=== PATIENT | female | born 2000 | race Caucasian/White ===

== ENCOUNTER 2024-10-26 00:04 | Inpatient (IN) | payer BC ==
[2024-10-26] MEDS ORDERED: Sodium Chloride 0.9% 20 ML SDV IV PRN (00:14)
[2024-10-26] MEDS ORDERED: Misoprostol 200 MCG Tab PO PRN (00:14)
[2024-10-26] MEDS ORDERED: Ondansetron 4 MG/2 ML SDV IVPUSH PRN (00:14)
[2024-10-26] MEDS ORDERED: Sodium Chloride 0.9% 10 ML Syringe FLUSH PRN (00:14)
[2024-10-26] MEDS ORDERED: Sodium Chloride 0.9% 2.5 ML Syringe FLUSH PRN (00:14)
[2024-10-26] MEDS ORDERED: Carboprost Tromethamine 250 MCG/1 mL Vial IM PRN (00:14)
[2024-10-26] MEDS ORDERED: Methylergonovine 0.2 MG/1 ML Amp IM PRN (00:14)
[2024-10-26] MEDS ORDERED: Lidocaine 1% 50 ML MDV INJECT PRN (00:14)
[2024-10-26] MEDS ORDERED: Water For Irrigation,Sterile 1,000 ML Container IRR PRN (00:14)
[2024-10-26] MEDS ORDERED: Butorphanol 1 MG/ML SDV IVPUSH PRN (00:14)
[2024-10-26] MEDS ORDERED: Misoprostol 200 MCG Tab RECTAL PRN (00:14)
[2024-10-26] MEDS ORDERED: Oxytocin/0.9 % Sodium Chloride 30 UNIT/500 ML BAG IV SCH (00:15)
[2024-10-26] MEDS ORDERED: Terbutaline 1 MG/ML SDV SUBCUT PRN (00:17)
[2024-10-26] MEDS: Lactated Ringers 1,000 ML IV SCH (01:19)
[2024-10-26 01:30] LABS: HEMATOCRIT 39.5 % (37.0-47.0); HEMOGLOBIN 13.4 g/dL (12.0-16.0); MEAN CORPUSCULAR HEMOGLOBIN 31.3 pg (28.0-32.0); MEAN CORPUSCULAR HGB CONC 33.9 g/dL (32.0-36.0); MEAN CORPUSCULAR VOLUME 92.3 fL (83.0-99.0); MEAN PLATELET VOLUME 10.4 fL (9.4-12.3); PLATELET COUNT,PLT 255 K/uL (150-400); RED BLOOD CELL COUNT 4.28 M/uL (4.10-5.30); WHITE BLOOD CELL COUNT,WBC 10.52 K/uL (3.9-11.3)
[2024-10-26] MEDS: Ampicillin 2 GM in Sodium Chloride 0.9% 100 ML IV ONE (01:37)
[2024-10-26] MEDS: Misoprostol 25 MCG (1/4 of 100 MCG) Tab VAG PRN (01:37)
[2024-10-26] MEDS: Misoprostol 50 MCG (1/2 of 100 MCG) Tab VAG ONE (06:06)
[2024-10-26] MEDS: Ampicillin 1 GM in Sodium Chloride 0.9% 50 ML IV SCH (06:06)
[2024-10-26] MEDS: Misoprostol 50 MCG (1/2 of 100 MCG) Tab ONE (06:24)
[2024-10-26 09:52] LABS: BILIRUBIN,URINE NEGATIVE (NEGATIVE); COLOR,URINE YELLOW; GLUCOSE,URINE NEGATIVE (NEGATIVE); KETONES,URINE NEGATIVE (NEGATIVE); LEUKOCYTE ESTERASE,URINE SMALL (NEGATIVE); NITRITE,URINE NEGATIVE (NEGATIVE); OCCULT BLOOD,URINE SMALL (NEGATIVE); PROTEIN,URINE 100 mg/dL (NEGATIVE); UROBILINOGEN,URINE 0.2 EU/dL (<2.0)
[2024-10-26 09:53] LABS: APPEARANCE,URINE SLT CLOUDY
[2024-10-26 09:55] LABS: A/G RATIO 0.7 (0.9-1.6); ALBUMIN 2.7 g/dL (3.4-5.0); BILIRUBIN TOTAL 0.6 mg/dL (0.2-1.0); CALCIUM 8.9 mg/dL (8.5-10.1); CARBON DIOXIDE,CO2 22.7 mmol/L (21.0-32.0); CREATININE 0.6 mg/dL (0.6-1.0); EST CRCL DRUG DOSING (CG) 143.02 mL/min; POTASSIUM,K 3.8 mmol/L (3.5-5.1); PROTEIN TOTAL,TP 6.5 g/dL (6.4-8.2)
[2024-10-26 09:58] LABS: BACTERIA,URINE 3+ (NEGATIVE); MUCUS,URINE LIGHT (NONE-MOD); SQUAMOUS EPITHELIAL CELLS,UR MODERATE; WBC,URINE 20-30 (0-5/HPF)
[2024-10-26 10:08] LABS: CREATININE,URINE RAND 232.4 mg/dL; PROTEIN CREATININE RATIO,URINE 0.3; PROTEIN,URINE RANDOM 74.4 mg/dL (<11.9)
[2024-10-26] MEDS: Oxytocin/0.9 % Sodium Chloride 30 UNIT/500 ML BAG IV SCH (10:30)
[2024-10-26] MEDS ORDERED: Bupivacaine 0.5% 10 ML SDV ONE (14:04)
[2024-10-26] MEDS ORDERED: dexmedeTOMIDine HCl 200 MCG/2 ML SDV ONE (14:04)
[2024-10-26] MEDS ORDERED: Phenylephrine HCl In 0.9% NaCl 1 MG/10 ML Syringe ONE (14:05)
[2024-10-26] MEDS: Ropivacaine HCl/PF 200 ML ONE (14:20)
[2024-10-26] MEDS ORDERED: ePHEDrine 50 MG/ML SDV IVPUSH PRN (14:26)
[2024-10-26] MEDS ORDERED: Phenylephrine HCl In 0.9% NaCl 1 MG/10 ML Syringe IVPUSH PRN (14:26)
[2024-10-26] MEDS ORDERED: Ropivacaine HCl/PF 400 MG in Premix Bag 1 BAG EPIDUR SCH (14:30)
[2024-10-26] MEDS ORDERED: dexmedeTOMIDine HCl 200 MCG/2 ML SDV EPIDUR SCH (14:30)
[2024-10-26 19:42] LABS: PH,UMBILICAL ARTERIAL 7.34 (7.18-7.38)
[2024-10-26 19:43] LABS: PH,UMBILICAL VENOUS 7.16 (7.25-7.45)
[2024-10-26] MEDS: Witch Hazel Medicated Pads 40/Jar TOP PRN (21:33)
[2024-10-26] MEDS: Lanolin 100% Cream 7 GM Tube TOP PRN (21:33)
[2024-10-26] MEDS: Benzocaine/Menthol 20%-0.5% Spray 78 GM Cannister TOP PRN (21:34)
[2024-10-26] MEDS: Acetaminophen 500 MG Tab PO PRN (23:42)
[2024-10-26] MEDS: Ibuprofen 800 MG Tab PO PRN (23:44)
[2024-10-27 05:38] LABS: C. TRACHOMATIS BY PCR NOT DETECTED; N. GONORRHOEAE BY PCR NOT DETECTED
[2024-10-27 06:24] LABS: HEMATOCRIT 33.5 % (37.0-47.0); HEMOGLOBIN 11.2 g/dL (12.0-16.0)
[2024-10-27] MEDS: Docusate Sodium 100 MG Cap PO PRN (08:01)
== END 2024-10-28 22:51 | disposition home or self-care (01) | DRG 560 ==
LOC: MW.OB 00:04 → OBSVTOIN 18:12 → MW.OB 22:52
PROVIDERS: ADMIT Obstetrics & Gynecology Gynecology; ATTEND Obstetrics & Gynecology Gynecology
PROC: 10E0XZZ Delivery of Products of Conception, External Approach (ICD-10-PCS; principal; 2024-10-26)
PROC: 10907ZC Drainage of Amniotic Fluid, Therapeutic from Products of Conception, Via Natural or Artificial Opening (ICD-10-PCS; 2024-10-26)
PROC: 0HQ9XZZ Repair Perineum Skin, External Approach (ICD-10-PCS; 2024-10-26)
PROC: 3E0P7VZ Introduction of Hormone into Female Reproductive, Via Natural or Artificial Opening (ICD-10-PCS; 2024-10-26)
PROC: 3E0R3BZ Introduction of Anesthetic Agent into Spinal Canal, Percutaneous Approach (ICD-10-PCS; 2024-10-26)
PROC: 00HU33Z Insertion of Infusion Device into Spinal Canal, Percutaneous Approach (ICD-10-PCS; 2024-10-26)
DX: O48.0 Post-term pregnancy (principal); Z3A.40 40 weeks gestation of pregnancy; Z37.0 Single live birth; O99.824 Streptococcus B carrier state complicating childbirth; O70.0 First degree perineal laceration during delivery
CPT/HCPCS: 01967; 36415; 51702; 59025; 59300; 59409; 80053; 81001; 82570; 82803; 84156; 85014; 85018; 85027; 86592; 86850; 86900; 86901; 87491; 87591; A9270-GY; J0290; J0665; J2371; J2590; J2795; J7120